=== PATIENT | male | born 1960 | race Caucasian/White ===

== ENCOUNTER → 2020-07-17 | Outpatient (CLI) | payer BC | LOC: EXRD 08:10 | DX: M62.838 Other muscle spasm (principal); M54.6 Pain in thoracic spine; M54.42 Lumbago with sciatica, left side; M47.814 Spondylosis without myelopathy or radiculopathy, thoracic region; M47.816 Spondylosis without myelopathy or radiculopathy, lumbar region; M48.061 Spinal stenosis, lumbar region without neurogenic claudication; I70.0 Atherosclerosis of aorta | CPT/HCPCS: 72070; 72100 ==

== ENCOUNTER 2021-02-10 12:22 | Emergency (ER) | payer OTHER ==
[2021-02-10] MEDS ORDERED: CEPHALEXIN500 MG PO (13:56)
== END 2021-02-10 14:10 | disposition home or self-care (01) ==
LOC: ER1 12:22
DX: S41.031A Puncture wound without foreign body of right shoulder, initial encounter (principal); I10 Essential (primary) hypertension; W20.8XXA Other cause of strike by thrown, projected or falling object, initial encounter
CPT/HCPCS: 73030; 99283

== ENCOUNTER → 2021-11-21 | Outpatient (CLI) | payer BC ==
[~2021-11-21] MED LIST: CEPHALEXIN500 MG PO
[2021-11-21 17:50] LABS: HEMOGLOBIN 15.4 gm/dl (14.0-17.5); RED BLOOD COUNT 4.97 M/UL (4.20-5.50); WHITE BLOOD COUNT 8.8 K/UL (4.5-11.0)
[2021-11-21 18:15] LABS: BUN/CREATININE RATIO 18 (0-10)
== END ==
LOC: RAD 16:53
PROVIDERS: Nurse Practitioner Family
DX: J20.9 Acute bronchitis, unspecified (principal)
CPT/HCPCS: 36415; 71046; 80053; 85025

== ENCOUNTER → 2021-11-27 | Outpatient (CLI) | payer BC | LOC: HEART 5 14:37 | DX: J42 Unspecified chronic bronchitis (principal) | CPT/HCPCS: 94010 ==

== ENCOUNTER → 2021-12-27 | Outpatient (CLI) | payer BC | LOC: EXRD 10:13 | DX: M17.11 Unilateral primary osteoarthritis, right knee (principal); M25.461 Effusion, right knee | CPT/HCPCS: 73564 ==

== ENCOUNTER → 2022-01-02 | Outpatient (CLI) | payer BC | LOC: HEART 5 14:17 | DX: J45.40 Moderate persistent asthma, uncomplicated (principal) | CPT/HCPCS: 95012 ==